=== PATIENT | female | born 1930 | race Caucasian/White ===

== ENCOUNTER 2016-12-20 14:35 | Emergency (ER) | payer MEDICARE ==
[~2016-12-20] VITALS: Ht 170.2 cm; Wt 58.4 kg
[~2016-12-20 14:35] MED LIST: CALC-141 PO; CHOL20002 PO; ELEQUIST; HYDR-3138 PO; MULT-208 PO; RITUXIN; TRAM-28 PO; TRAV5DRO; [UNRECOGNIZED DRUG - OTHER] PO
[2016-12-20 16:27] VITALS: BP 124/55
== END 2016-12-20 16:29 | disposition home or self-care (01) ==
LOC: ED 16:08
DX: L03.116 Cellulitis of left lower limb (principal); Z88.0 Allergy status to penicillin; Z88.1 Allergy status to other antibiotic agents
CPT/HCPCS: 99283

== ENCOUNTER 2017-02-15 14:53 | Emergency (ER) | payer MEDICARE ==
[~2017-02-15] VITALS: Ht 170.2 cm; Wt 57.9 kg
[2017-02-15] MEDS ORDERED: KETOROLAC 30 MG/1 ML IM ONE (15:30)
[2017-02-15] MEDS ORDERED: KETOROLAC 30 MG/1 ML ONE (15:46)
[2017-02-15] MEDS ORDERED: APIX5TAB PO (15:54)
[2017-02-15] MEDS ORDERED: SODIUM CHLORIDE FLUSH 10ML SYR IVF ONE (16:30)
[2017-02-15 16:53] LABS: BLOOD UREA NITROGEN 22 mg/dL (7-18)
[2017-02-15 17:15] LABS: DIFF TOTAL CELLS COUNTED 100 CELL DIFF
[2017-02-15 17:19] LABS: VERIFY COUNTS? YES
[2017-02-15] MEDS ORDERED: OMNIPAQUE 350 MG/ML, 100ML BOTTLE ONE (17:36)
[2017-02-15 18:51] VITALS: BP 137/84
== END 2017-02-15 18:53 | disposition home or self-care (01) ==
LOC: ED 18:00
DX: M51.36 Other intervertebral disc degeneration, lumbar region (principal); M54.5 Low back pain; Z86.718 Personal history of other venous thrombosis and embolism; Z88.0 Allergy status to penicillin; Z88.1 Allergy status to other antibiotic agents; Z88.8 Allergy status to other drugs, medicaments and biological substances
CPT/HCPCS: 36415; 71275; 72110; 74174; 80048; 82040; 85025; 99285; Q9967

== ENCOUNTER 2017-12-06 15:01 | Inpatient (IN) | payer MEDICARE ==
[~2017-12-06] VITALS: Ht 170.2 cm; Wt 64.6 kg
[~2017-12-06 15:01] MED LIST changes: +APIX5TAB PO; -HYDR-3138 PO; +HYDR-3237 PO; -TRAM-28 PO; +TRAM-47 PO
[2017-12-06] MEDS ORDERED: SODIUM CHLORIDE FLUSH 10ML SYR IVF ONE (15:30)
[2017-12-06] MEDS ORDERED: SODIUM CHLORIDE 0.9% 1,000 ML IV ONE (15:52)
[2017-12-06] MEDS ORDERED: SODIUM CHLORIDE 0.9% 1,000ML IVBOLUS ONE (16:00)
[2017-12-06 16:19] LABS: BASOPHILS # (AUTO) 0.01 x10^3/uL (0-0.1); BASOPHILS % (AUTO) 0 % (0-1); EOSINOPHILS # (AUTO) 0.75 x10^3/uL (0-0.4); EOSINOPHILS % (AUTO) 13 % (1-7); LYMPHOCYTES # (AUTO) 0.59 x10^3/uL (1-3.4); LYMPHOCYTES % (AUTO) 11 % (22-44); MD NO; MEAN CORPUSCULAR HEMOGLOBIN 34.1 pg (27.0-34.8); MEAN CORPUSCULAR HGB CONC 34.1 g/dL (32.4-35.8); MEAN PLATELET VOLUME 7.5 fL (7.4-10.4); MONOCYTES # (AUTO) 0.49 x10^3/uL (0.2-0.8); MONOCYTES % (AUTO) 9 % (2-9); NEUTROPHILS # (AUTO) 3.76 x10^3/uL (1.8-6.8); NEUTROPHILS % (AUTO) 67 % (42-75); PLATELET COUNT 202 x10^3/uL (130-400); RED BLOOD COUNT 3.08 x10^6/uL (3.82-5.3); RED CELL DISTRIBUTION WIDTH 15.2 % (9.6-15.2)
[2017-12-06 16:31] LABS: ALANINE AMINOTRANSFERASE 25 U/L (12-78); ALBUMIN 3.2 g/dL (3.4-5.0); ANION GAP 5 mmol/L (5-15); CHLORIDE 109 mmol/L (98-107)
[2017-12-06 16:35] LABS: ALKALINE PHOSPHATASE 26 U/L (45-117); BILIRUBIN,TOTAL 0.7 mg/dL (0.2-1.0); CALCIUM 14.2 mg/dL (8.5-10.1); TOTAL PROTEIN 7.9 g/dL (6.4-8.2); TROPONIN I < 0.015 ng/mL (0.000-0.045)
[2017-12-06] MEDS ORDERED: PHARMACY MAY ADJ FOR RENAL FX MC PRN (17:30)
[2017-12-06] MEDS ORDERED: ONDANSETRON 2MG/ML, 2ML IVPush PRN (17:30)
[2017-12-06] MEDS ORDERED: hydrALAzine 20 MG/ML, 1ML IVPush PRN (17:30)
[2017-12-06] MEDS ORDERED: BISACODYL 10 MG SUPP PR PRN (17:30)
[2017-12-06] MEDS ORDERED: ACETAMINOPHEN 325 MG TABLET PO PRN (17:30)
[2017-12-06] MEDS ORDERED: PAMIDRONATE 90 MG in SODIUM CHLORIDE 0.9% 500 ML IV ONE (17:30)
[2017-12-06 17:36] LABS: MICROSCOPIC AUTO
[2017-12-06 17:37] LABS: CULTURE INDICATED? NO
[2017-12-06] MEDS ORDERED: HYDROcodone/APAP 5/325 TABLET PO PRN (18:00)
[2017-12-06] MEDS: SODIUM CHLORIDE 0.9% 1,000 ML IV SCH ×2 (18:31→21:09)
[2017-12-06] MEDS: CALCITONIN SALMON 200 UNITS/ML, 2ML SQ SCH (19:30)
[2017-12-06 21:00] VITALS: BP 133/74
[2017-12-06] MEDS ORDERED: APIXABAN 2.5 MG TABLET PO SCH (21:00)
[2017-12-06] MEDS: DOCUSATE 100 MG CAPSULE PO SCH (21:00)
[2017-12-06 21:30] VITALS: BP 133/74
[2017-12-07 01:11] VITALS: BP 113/67
[2017-12-07] MEDS: SODIUM CHLORIDE 0.9% 1,000 ML IV SCH ×4 (02:18→23:25)
[2017-12-07 06:06] LABS: BASOPHILS # (AUTO) 0.01 x10^3/uL (0-0.1); BASOPHILS % (AUTO) 0 % (0-1); EOSINOPHILS # (AUTO) 0.56 x10^3/uL (0-0.4); EOSINOPHILS % (AUTO) 14 % (1-7); LYMPHOCYTES # (AUTO) 0.64 x10^3/uL (1-3.4); LYMPHOCYTES % (AUTO) 16 % (22-44); MD NO; MEAN CORPUSCULAR HEMOGLOBIN 34.2 pg (27.0-34.8); MEAN CORPUSCULAR HGB CONC 34.3 g/dL (32.4-35.8); MEAN CORPUSCULAR VOLUME 99.7 fL (80-100); MEAN PLATELET VOLUME 7.5 fL (7.4-10.4); MONOCYTES # (AUTO) 0.38 x10^3/uL (0.2-0.8); MONOCYTES % (AUTO) 9 % (2-9); NEUTROPHILS # (AUTO) 2.51 x10^3/uL (1.8-6.8); NEUTROPHILS % (AUTO) 61 % (42-75); PLATELET COUNT 164 x10^3/uL (130-400); RED BLOOD COUNT 2.58 x10^6/uL (3.82-5.3); RED CELL DISTRIBUTION WIDTH 15.3 % (9.6-15.2)
[2017-12-07 06:16] LABS: ALBUMIN 2.6 g/dL (3.4-5.0); CALCIUM 11.3 mg/dL (8.5-10.1); CHLORIDE 116 mmol/L (98-107)
[2017-12-07 06:30] LABS: ALANINE AMINOTRANSFERASE 20 U/L (12-78); ALKALINE PHOSPHATASE 21 U/L (45-117); ANION GAP 7 mmol/L (5-15); BILIRUBIN,TOTAL 0.6 mg/dL (0.2-1.0); CREATININE 1.79 mg/dL (0.55-1.02); TOTAL PROTEIN 6.6 g/dL (6.4-8.2)
[2017-12-07 07:37] VITALS: BP 110/66
[2017-12-07] MEDS: POLYETHYLENE GLYCOL 17 GM PACKET PO SCH (07:53)
[2017-12-07] MEDS: ELIQUIS 2.5 MG HOMEMEDPO SCH ×2 (07:53→20:11)
[2017-12-07] MEDS: DOCUSATE 100 MG CAPSULE PO SCH ×2 (07:53→20:11)
[2017-12-07] MEDS: CALCITONIN SALMON 200 UNITS/ML, 2ML SQ SCH ×2 (07:53→20:11)
[2017-12-07 12:56] VITALS: BP 121/59
[2017-12-07 18:30] VITALS: BP 113/64
[2017-12-07] MEDS ORDERED: MAGNESIUM CITRATE 300ML ORAL SOL PO ONE (21:00)
[2017-12-08 01:36] VITALS: BP 124/68
[2017-12-08 05:46] LABS: ANION GAP 7 mmol/L (5-15); CALCIUM 10.3 mg/dL (8.5-10.1); CHLORIDE 118 mmol/L (98-107); CREATININE 1.54 mg/dL (0.55-1.02)
[2017-12-08 05:59] LABS: % IRON SATURATION 30 % (20-55); IRON LEVEL 70 mcg/dL (50-170); TOTAL IRON BINDING CAPACITY 231 mcg/dL (250-450); TRANSFERRIN 179 mg/dL (200-360)
[2017-12-08 07:00] LABS: BASOPHILS % (AUTO) 0 % (0-1); EOSINOPHILS # (AUTO) 0.41 x10^3/uL (0-0.4); EOSINOPHILS % (AUTO) 11 % (1-7); LYMPHOCYTES # (AUTO) 0.57 x10^3/uL (1-3.4); LYMPHOCYTES % (AUTO) 15 % (22-44); MD NO; MEAN CORPUSCULAR HEMOGLOBIN 34.6 pg (27.0-34.8); MEAN CORPUSCULAR HGB CONC 34.6 g/dL (32.4-35.8); MEAN PLATELET VOLUME 7.4 fL (7.4-10.4); MONOCYTES # (AUTO) 0.36 x10^3/uL (0.2-0.8); MONOCYTES % (AUTO) 9 % (2-9); NEUTROPHILS # (AUTO) 2.51 x10^3/uL (1.8-6.8); NEUTROPHILS % (AUTO) 65 % (42-75); PLATELET COUNT 154 x10^3/uL (130-400); RED CELL DISTRIBUTION WIDTH 14.9 % (9.6-15.2)
[2017-12-08 07:03] VITALS: BP 137/70
[2017-12-08] MEDS: POLYETHYLENE GLYCOL 17 GM PACKET PO SCH (09:00)
[2017-12-08] MEDS: DOCUSATE 100 MG CAPSULE PO SCH (09:00)
[2017-12-08] MEDS: ELIQUIS 2.5 MG HOMEMEDPO SCH (09:00)
[2017-12-08] MEDS: CALCITONIN SALMON 200 UNITS/ML, 2ML SQ SCH (09:51)
[2017-12-08] MEDS: SODIUM CHLORIDE 0.9% 1,000 ML IV SCH (09:51)
[2017-12-08] MEDS ORDERED: ELIQUIS HOMEMEDPO (11:20)
[2017-12-08] MEDS ORDERED: APIX5TAB PO (11:26)
== END 2017-12-08 13:00 | disposition home or self-care (01) | DRG 683 ==
LOC: ED 17:21 → EDIP 17:22 → ED 18:46 → 4WST 20:24 → DCLOUNGE 12-08 12:46
PROVIDERS: ADMIT Internal Medicine; ATTEND Internal Medicine
DX: N17.9 Acute kidney failure, unspecified (principal); C85.90 Non-Hodgkin lymphoma, unspecified, unspecified site; E44.0 Moderate protein-calorie malnutrition; I82.502 Chronic embolism and thrombosis of unspecified deep veins of left lower extremity; E83.52 Hypercalcemia; D64.9 Anemia, unspecified; K59.00 Constipation, unspecified; G89.29 Other chronic pain; I10 Essential (primary) hypertension; Z86.12 Personal history of poliomyelitis; Z79.01 Long term (current) use of anticoagulants
CPT/HCPCS: 36415; 80048; 80053; 81001; 82306; 82728; 83540; 83550; 83735; 83970; 84100; 84443; 84466; 84484; 85025; 93005; 96360; 96361; J0630; J7030

== ENCOUNTER → 2017-12-28 | Outpatient (CLI) | payer MEDICARE ==
[~2017-12-28] MED LIST changes: +ELIQUIS HOMEMEDPO
== END | disposition home or self-care (01) ==
LOC: PETCFH 13:30
PROVIDERS: ATTEND Internal Medicine Hematology & Oncology
DX: C85.95 Non-Hodgkin lymphoma, unspecified, lymph nodes of inguinal region and lower limb (principal); C85.10 Unspecified B-cell lymphoma, unspecified site
CPT/HCPCS: 78815; A9552

== ENCOUNTER 2019-02-08 09:27 | Emergency (ER) | payer MEDICARE ==
[~2019-02-08] VITALS: Ht 170.2 cm; Wt 57.1 kg
[2019-02-08 09:39] VITALS: BP 131/78
== END 2019-02-08 11:34 | disposition home or self-care (01) ==
LOC: ED 09:57
DX: R04.0 Epistaxis (principal); Z86.718 Personal history of other venous thrombosis and embolism
CPT/HCPCS: 99282

== ENCOUNTER 2019-09-25 16:28 | Inpatient (IN) | payer MEDICARE ==
[~2019-09-25] VITALS: Ht 170.2 cm; Wt 56.0 kg
[~2019-09-25 16:28] MED LIST changes: +APIX2.5T PO; +BACI1POW2 TP; -CHOL20002 PO; +CHOL200052 PO; +PANT20TA3 PO; +PRED10TA PO
[2019-09-25] MEDS ORDERED: SODIUM CHLORIDE 0.9% 1,000 ML IV ONE (16:51)
--- NOTE | 2019-09-25 17:00 | NUR ---
PT SENT HERE BY PCP, PT CALLED AND TOLD CA+ 12.5. PT WITH GEN WEAKNESS AND DRY MOUTH X1 MONTH. PIV INITIATED, PT MEDICATED PER SEP. PT TO CARD MONITOR, BP, CONT PULSE OX
[2019-09-25 17:22] LABS: BASOPHILS % (AUTO) 0 % (0-1); EOSINOPHILS # (AUTO) 0.58 x10^3/uL (0-0.4); EOSINOPHILS % (AUTO) 13 % (1-7); LYMPHOCYTES # (AUTO) 0.64 x10^3/uL (1-3.4); LYMPHOCYTES % (AUTO) 15 % (22-44); MD NO; MEAN CORPUSCULAR HEMOGLOBIN 31.8 pg (27.0-34.8); MEAN CORPUSCULAR HGB CONC 33.4 g/dL (32.4-35.8); MEAN CORPUSCULAR VOLUME 95.1 fL (80-100); MEAN PLATELET VOLUME 8.3 fL (7.4-10.4); MONOCYTES # (AUTO) 0.35 x10^3/uL (0.2-0.8); MONOCYTES % (AUTO) 8 % (2-9); NEUTROPHILS # (AUTO) 2.77 x10^3/uL (1.8-6.8); NEUTROPHILS % (AUTO) 64 % (42-75); PLATELET COUNT 136 x10^3/uL (130-400); RED BLOOD COUNT 3.53 x10^6/uL (3.82-5.3); RED CELL DISTRIBUTION WIDTH 13.5 % (9.6-15.2)
[2019-09-25 17:31] LABS: ALBUMIN 2.8 g/dL (3.4-5.0); ANION GAP 6 mmol/L (5-15); CALCIUM 12.3 mg/dL (8.5-10.1); CHLORIDE 108 mmol/L (98-107)
[2019-09-25 17:33] LABS: ALANINE AMINOTRANSFERASE 14 U/L (12-78); ALKALINE PHOSPHATASE 27 U/L (45-117); BILIRUBIN,TOTAL 0.4 mg/dL (0.2-1.0); CREATININE 1.74 mg/dL (0.55-1.02); TOTAL PROTEIN 7.5 g/dL (6.4-8.2)
[2019-09-25] MEDS ORDERED: SODIUM CHLORIDE FLUSH 10ML SYR IVF ONE (18:00)
--- NOTE | 2019-09-25 18:18 | NUR ---
PT RESTING COMFORTABLY ON [place] AT THIS TIME, VSS, NAD NOTED. FLUIDS INFUSING
[2019-09-25] MEDS ORDERED: ACETAMINOPHEN 325 MG TABLET PO PRN (19:00)
--- NOTE | 2019-09-25 19:13 | NUR ---
Report received from LUCIA Ramirez. This RN to assume care. Patient resting in [facility] with no complaints.
[2019-09-25 19:50] LABS: FREE T4 (FREE THYROXINE) 1.29 ng/dL (0.76-1.46)
--- NOTE | 2019-09-25 20:13 | NUR ---
Report given to LUCIA Polo. Patient to be transferred to room 346.
[2019-09-25 21:44] VITALS: BP 150/79
[2019-09-26 00:51] VITALS: BP 109/62
[2019-09-26 05:48] LABS: CALCIUM 11.5 mg/dL (8.5-10.1); CHLORIDE 113 mmol/L (98-107)
[2019-09-26 05:52] LABS: ANION GAP 6 mmol/L (5-15); CREATININE 1.65 mg/dL (0.55-1.02)
[2019-09-26 06:12] LABS: MEAN CORPUSCULAR HEMOGLOBIN 32.6 pg (27.0-34.8); MEAN CORPUSCULAR HGB CONC 34.2 g/dL (32.4-35.8); MEAN CORPUSCULAR VOLUME 95.2 fL (80-100); MEAN PLATELET VOLUME 8.6 fL (7.4-10.4); PLATELET COUNT 97 x10^3/uL (130-400); RED BLOOD COUNT 3.29 x10^6/uL (3.82-5.3); RED CELL DISTRIBUTION WIDTH 13.7 % (9.6-15.2)
[2019-09-26 06:13] LABS: BASOPHILS # (AUTO) 0.01 x10^3/uL (0-0.1); BASOPHILS % (AUTO) 0 % (0-1); EOSINOPHILS # (AUTO) 0.57 x10^3/uL (0-0.4); EOSINOPHILS % (AUTO) 15 % (1-7); LYMPHOCYTES # (AUTO) 0.63 x10^3/uL (1-3.4); LYMPHOCYTES % (AUTO) 16 % (22-44); MD SCAN; MONOCYTES # (AUTO) 0.37 x10^3/uL (0.2-0.8); MONOCYTES % (AUTO) 10 % (2-9); NEUTROPHILS # (AUTO) 2.34 x10^3/uL (1.8-6.8); NEUTROPHILS % (AUTO) 60 % (42-75)
[2019-09-26 08:00] VITALS: BP 131/70
[2019-09-26] MEDS ORDERED: FUROSEMIDE 20 MG/2 ML IV SCH (09:00)
[2019-09-26] MEDS: HEPARIN 5,000 UNITS/ML, 1ML SQ SCH ×2 (09:01→20:20)
[2019-09-26] MEDS: POTASSIUM CHLORIDE 10 MEQ in D5%-0.45% NACL 1,000 ML IV SCH ×3 (10:14→20:22)
[2019-09-26 13:30] VITALS: BP 121/68
[2019-09-26 19:57] VITALS: BP 118/64
[2019-09-27] MEDS: POTASSIUM CHLORIDE 10 MEQ in D5%-0.45% NACL 1,000 ML IV SCH ×3 (01:06→14:00)
[2019-09-27 01:09] VITALS: BP 133/69
[2019-09-27 04:30] LABS: MICROSCOPIC NOT IND
[2019-09-27 04:33] LABS: CULTURE INDICATED? NO
[2019-09-27] MEDS: HEPARIN 5,000 UNITS/ML, 1ML SQ SCH ×3 (05:00→21:00)
[2019-09-27 05:31] LABS: ALBUMIN 2.2 g/dL (3.4-5.0); ANION GAP 5 mmol/L (5-15); CALCIUM 10.1 mg/dL (8.5-10.1); CHLORIDE 110 mmol/L (98-107)
[2019-09-27 05:35] LABS: ALANINE AMINOTRANSFERASE 13 U/L (12-78); ALKALINE PHOSPHATASE 18 U/L (45-117); BILIRUBIN,TOTAL 0.7 mg/dL (0.2-1.0); CREATININE 1.41 mg/dL (0.55-1.02); TOTAL PROTEIN 5.9 g/dL (6.4-8.2)
[2019-09-27 07:39] VITALS: BP 126/66
[2019-09-27] MEDS ORDERED: POTASSIUM CHLORIDE 20 MEQ TAB.ER.PRT PO ONE (08:00)
[2019-09-27 14:09] VITALS: BP 112/67
[2019-09-27 19:58] VITALS: BP 115/67
[2019-09-28 01:06] VITALS: BP 121/62
[2019-09-28] MEDS: HEPARIN 5,000 UNITS/ML, 1ML SQ SCH (05:00)
[2019-09-28 06:54] LABS: ALBUMIN 2.2 g/dL (3.4-5.0); ANION GAP 5 mmol/L (5-15); CALCIUM 10.2 mg/dL (8.5-10.1); CHLORIDE 113 mmol/L (98-107)
[2019-09-28 06:57] LABS: ALANINE AMINOTRANSFERASE 13 U/L (12-78); ALKALINE PHOSPHATASE 21 U/L (45-117); BILIRUBIN,TOTAL 0.4 mg/dL (0.2-1.0); CREATININE 1.43 mg/dL (0.55-1.02); TOTAL PROTEIN 6.1 g/dL (6.4-8.2)
[2019-09-28] MEDS ORDERED: LACTATED RINGERS 1,000 ML IV SCH (07:30)
[2019-09-28 08:00] VITALS: BP 120/60
[2019-09-28] MEDS ORDERED: POTASSIUM CHLORIDE 10 MEQ in D5%-0.45% NACL 1,000 ML IV SCH (08:00)
[2019-09-28] MEDS: LACTATED RINGERS 1,000 ML IV SCH ×3 (08:11→22:44)
[2019-09-28 14:00] VITALS: BP 125/65
[2019-09-29 02:04] VITALS: BP 126/72
[2019-09-29] MEDS: LACTATED RINGERS 1,000 ML IV SCH ×3 (02:23→16:02)
[2019-09-29 04:58] LABS: ALBUMIN 2.4 g/dL (3.4-5.0); ANION GAP 6 mmol/L (5-15); CALCIUM 10.6 mg/dL (8.5-10.1); CHLORIDE 111 mmol/L (98-107)
[2019-09-29 05:02] LABS: % IRON SATURATION 25 % (20-55); ALANINE AMINOTRANSFERASE 13 U/L (12-78); ALKALINE PHOSPHATASE 20 U/L (45-117); BILIRUBIN,TOTAL 0.7 mg/dL (0.2-1.0); CREATININE 1.24 mg/dL (0.55-1.02); IRON LEVEL 62 mcg/dL (50-170); TOTAL IRON BINDING CAPACITY 247 mcg/dL (250-450); TOTAL PROTEIN 6.4 g/dL (6.4-8.2)
[2019-09-29 07:58] VITALS: BP 128/65
[2019-09-29] MEDS ORDERED: FEBUXOSTAT 40 MG TABLET PO SCH (09:00)
[2019-09-29] MEDS: CALCITONIN SALMON 200 UNITS/ML, 2ML SQ SCH ×2 (10:21→21:23)
[2019-09-29 14:46] LABS: MICROSCOPIC NOT IND
[2019-09-29 14:52] VITALS: BP 122/68
[2019-09-29 14:52] LABS: CULTURE INDICATED? NO
[2019-09-29] MEDS ORDERED: GOLYTELY 4,000ML ORAL.SOL PO ONE (18:00)
[2019-09-29 18:36] VITALS: BP 145/83
[2019-09-30 01:38] VITALS: BP 138/74
[2019-09-30] MEDS: LACTATED RINGERS 1,000 ML IV SCH (01:38)
[2019-09-30 05:52] LABS: ALBUMIN 2.4 g/dL (3.4-5.0); ANION GAP 6 mmol/L (5-15); CHLORIDE 113 mmol/L (98-107)
[2019-09-30 05:57] LABS: ALANINE AMINOTRANSFERASE 13 U/L (12-78); ALKALINE PHOSPHATASE 22 U/L (45-117); BILIRUBIN,TOTAL 0.7 mg/dL (0.2-1.0); CREATININE 1.14 mg/dL (0.55-1.02); TOTAL PROTEIN 6.4 g/dL (6.4-8.2)
[2019-09-30 07:33] VITALS: BP 127/80
[2019-09-30] MEDS ORDERED: ONDANSETRON 2MG/ML, 2ML ONE (08:35)
[2019-09-30] MEDS ORDERED: PROPOFOL 10 MG/ML, 20ML ONE (08:35)
[2019-09-30] MEDS: FERROUS SULFATE 325 MG TABLET PO SCH (12:49)
[2019-09-30] MEDS: CALCITONIN SALMON 200 UNITS/ML, 2ML SQ SCH (12:50)
[2019-09-30 14:14] VITALS: BP 132/81
[2019-09-30 19:15] VITALS: BP 113/64
[2019-10-01 01:38] VITALS: BP 108/61
[2019-10-01 04:39] LABS: ALBUMIN 2.4 g/dL (3.4-5.0); ANION GAP 5 mmol/L (5-15); CALCIUM 8.6 mg/dL (8.5-10.1); CHLORIDE 114 mmol/L (98-107)
[2019-10-01 04:40] LABS: BASOPHILS # (AUTO) 0.01 x10^3/uL (0-0.1); BASOPHILS % (AUTO) 0 % (0-1); EOSINOPHILS # (AUTO) 0.55 x10^3/uL (0-0.4); EOSINOPHILS % (AUTO) 15 % (1-7); LYMPHOCYTES # (AUTO) 0.65 x10^3/uL (1-3.4); LYMPHOCYTES % (AUTO) 18 % (22-44); MD NO; MEAN CORPUSCULAR HEMOGLOBIN 32.1 pg (27.0-34.8); MEAN CORPUSCULAR HGB CONC 33.8 g/dL (32.4-35.8); MEAN CORPUSCULAR VOLUME 94.8 fL (80-100); MEAN PLATELET VOLUME 8.6 fL (7.4-10.4); MONOCYTES # (AUTO) 0.39 x10^3/uL (0.2-0.8); MONOCYTES % (AUTO) 11 % (2-9); NEUTROPHILS # (AUTO) 2.09 x10^3/uL (1.8-6.8); NEUTROPHILS % (AUTO) 57 % (42-75); PLATELET COUNT 120 x10^3/uL (130-400); RED BLOOD COUNT 3.05 x10^6/uL (3.82-5.3); RED CELL DISTRIBUTION WIDTH 13.9 % (9.6-15.2)
[2019-10-01 07:50] VITALS: BP 110/62
[2019-10-01] MEDS: FERROUS SULFATE 325 MG TABLET PO SCH (07:59)
[2019-10-01] MEDS ORDERED: FERR-51 PO (09:03)
[2019-10-01] MEDS ORDERED: POLYETHYLENE GLYCOL 17 GM PACKET PO SCH (10:46)
== END 2019-10-01 11:50 | disposition home or self-care (01) | DRG 682 ==
LOC: ED 18:11 → EDIP 18:12 → ED 18:33 → 3N 20:16 → 4NW 09-29 18:36
PROVIDERS: ADMIT Family Medicine; ATTEND Family Medicine
PROC: 0DBH8ZX Excision of Cecum, Via Natural or Artificial Opening Endoscopic, Diagnostic (ICD-10-PCS; principal; 2019-09-25)
DX: N17.0 Acute kidney failure with tubular necrosis (principal); E43 Unspecified severe protein-calorie malnutrition; C85.90 Non-Hodgkin lymphoma, unspecified, unspecified site; Z68.1 Body mass index [BMI] 19.9 or less, adult; D69.3 Immune thrombocytopenic purpura; E83.52 Hypercalcemia; D69.6 Thrombocytopenia, unspecified; K63.5 Polyp of colon; E87.6 Hypokalemia; E83.39 Other disorders of phosphorus metabolism; G89.29 Other chronic pain; M54.9 Dorsalgia, unspecified; K59.00 Constipation, unspecified; N18.3 Chronic kidney disease, stage 3 (moderate); D63.8 Anemia in other chronic diseases classified elsewhere; K64.8 Other hemorrhoids; E79.0 Hyperuricemia without signs of inflammatory arthritis and tophaceous disease; Z86.718 Personal history of other venous thrombosis and embolism; Z79.01 Long term (current) use of anticoagulants; Z82.49 Family history of ischemic heart disease and other diseases of the circulatory system; Z79.899 Other long term (current) drug therapy; Z88.2 Allergy status to sulfonamides; Z88.8 Allergy status to other drugs, medicaments and biological substances; Z98.49 Cataract extraction status, unspecified eye
CPT/HCPCS: 36415; 71250; 74176; 76770; 80048; 80053; 80069; 81003; 82306; 82330; 82397; 82550; 82728; 83540; 83550; 83735; 83970; 84100; 84439; 84443; 84550; 85025; 88305; 93005; G0378; J2405; J2704; J3480; J0630; J1940; J7030; J7120

== ENCOUNTER 2019-12-29 19:21 | Observation (INO) | payer MEDICARE ==
[~2019-12-29] VITALS: Ht 170.2 cm; Wt 56.4 kg
[~2019-12-29 19:21] MED LIST changes: +FERR-51 PO
--- NOTE | 2019-12-29 19:33 | NUR ---
HAJA HOUSTON IN ROOM FOR EVAL. PT C/O DIZZINESS WHEN CHANGING POSITION. EKG DONE. PIV BY EMS. FALL PRECS AND CALL MATIAS.
[2019-12-29] MEDS ORDERED: MECLIZINE CHEWABLE 25 MG TAB PO ONE (20:00)
[2019-12-29] MEDS ORDERED: MECLIZINE CHEWABLE 25 MG TAB ONE (20:02)
--- NOTE | 2019-12-29 20:14 | NUR ---
TO AND FROM RAD. MECLIZINE PER SEP. NAD.
[2019-12-29 20:41] LABS: MEAN CORPUSCULAR HEMOGLOBIN 35.1 pg (27.0-34.8); MEAN CORPUSCULAR HGB CONC 34.2 g/dL (32.4-35.8); MEAN CORPUSCULAR VOLUME 102.6 fL (80-100); MEAN PLATELET VOLUME 7.7 fL (7.4-10.4); PLATELET COUNT 169 x10^3/uL (130-400); RED BLOOD COUNT 2.63 x10^6/uL (3.82-5.3); RED CELL DISTRIBUTION WIDTH 20.3 % (9.6-15.2)
[2019-12-29 20:45] LABS: ALANINE AMINOTRANSFERASE 15 U/L (12-78); ALBUMIN 2.6 g/dL (3.4-5.0); ANION GAP 5 mmol/L (5-15); CALCIUM 9.3 mg/dL (8.5-10.1); CHLORIDE 105 mmol/L (98-107); CREATININE 0.96 mg/dL (0.55-1.02)
[2019-12-29 20:49] LABS: ALKALINE PHOSPHATASE 28 U/L (45-117); BILIRUBIN,TOTAL 0.9 mg/dL (0.2-1.0); TOTAL PROTEIN 7.7 g/dL (6.4-8.2); TROPONIN I < 0.015 ng/mL (0.000-0.045)
[2019-12-29 20:55] LABS: MD YES
[2019-12-29 20:59] LABS: ANISOCYTOSIS 2+; EOS#(MANUAL) 0.09 x10^3/uL (0.0-0.4); EOS% (MANUAL) 3 % (1-7); LYMPH#(MANUAL) 0.39 x10^3/uL (1-3.4); LYMPHS% (MANUAL) 13 % (22-44); MONOS#(MANUAL) 0.21 x10^3/uL (0.3-2.7); MONOS% (MANUAL) 7 % (2-9); SEG#(MANUAL) 2.31 x10^3/uL (1.8-6.8); SEGS% (MANUAL) 77 % (42-75)
[2019-12-29 21:00] LABS: MICROCYTOSIS 1+
--- NOTE | 2019-12-29 21:00 | NUR ---
REPORT TO ONDINA MYERS.
[2019-12-29 21:02] LABS: <PLATELET ESTIMATE> ADEQUATE; <PLT MORPHOLOGY> NORMAL PLT MORPH; OVALOCYTES 1+
--- NOTE | 2019-12-29 22:00 | NUR ---
PATIENT RESTING IN BED, NO NOTED NEEDS AT THIS TIME. WILL CONTINUE TO MONITOR.
[2019-12-29] MEDS ORDERED: SODIUM CHLORIDE FLUSH 10ML SYR IVF PRN (22:30)
[2019-12-29] MEDS ORDERED: ERGO500017 PO (23:03)
[2019-12-29] MEDS ORDERED: MULT-257 PO (23:03)
--- NOTE | 2019-12-29 23:05 | NUR ---
PATIENT UPDATED ON PLAN OF CARE. VITAL SIGNS STABLE. NO NOTED FURTHER NEEDS AT THIS TIME. PATIENT'S VITAL SIGNS ARE STABLE. WILL CONTINUE TO MONITOR.
[2019-12-29] MEDS ORDERED: ONDANSETRON ODT 4 MG PO PRN (23:30)
[2019-12-29] MEDS ORDERED: ACETAMINOPHEN 325 MG TABLET PO PRN (23:30)
[2019-12-29] MEDS ORDERED: MECLIZINE 25 MG TABLET PO PRN (23:30)
[2019-12-29] MEDS ORDERED: hydrALAzine 20 MG/ML, 1ML IVPush PRN (23:30)
[2019-12-29] MEDS ORDERED: ONDANSETRON 2MG/ML, 2ML IVPush PRN (23:30)
[2019-12-29] MEDS ORDERED: DOCUSATE 100 MG CAPSULE PO PRN (23:30)
[2019-12-29] MEDS ORDERED: BISACODYL 10 MG SUPP PR PRN (23:30)
[2019-12-29] MEDS ORDERED: POLYETHYLENE GLYCOL 17 GM PACKET PO PRN (23:30)
[2019-12-29] MEDS ORDERED: OXYcodone IR 5MG TABLET PO PRN (23:30)
[2019-12-29] MEDS ORDERED: PROMETHAZINE 25 MG/ML, 1ML IM PRN (23:30)
[2019-12-29 23:53] LABS: FREE T4 (FREE THYROXINE) 1.59 ng/dL (0.76-1.46)
[2019-12-30 01:06] VITALS: BP 108/68
[2019-12-30] MEDS: SODIUM CHLORIDE 0.9% 1,000 ML IV SCH ×2 (01:30→12:46)
[2019-12-30 02:50] VITALS: BP 110/67
[2019-12-30 05:04] LABS: MICROSCOPIC AUTO
[2019-12-30 07:46] LABS: MEAN CORPUSCULAR HEMOGLOBIN 35.1 pg (27.0-34.8); MEAN CORPUSCULAR HGB CONC 34.4 g/dL (32.4-35.8); MEAN PLATELET VOLUME 6.9 fL (7.4-10.4); PLATELET COUNT 162 x10^3/uL (130-400); RED BLOOD COUNT 2.44 x10^6/uL (3.82-5.3); RED CELL DISTRIBUTION WIDTH 20.7 % (9.6-15.2)
[2019-12-30 07:55] VITALS: BP 101/60
[2019-12-30 07:58] LABS: ALANINE AMINOTRANSFERASE 14 U/L (12-78); ALBUMIN 2.3 g/dL (3.4-5.0); ANION GAP 4 mmol/L (5-15); CALCIUM 8.8 mg/dL (8.5-10.1); CHLORIDE 108 mmol/L (98-107)
[2019-12-30 08:01] LABS: ALKALINE PHOSPHATASE 25 U/L (45-117); BILIRUBIN,TOTAL 0.7 mg/dL (0.2-1.0); CHOL/HDL RATIO 4.2; CHOLESTEROL, TOTAL 108 mg/dL (140-239); CREATININE 0.96 mg/dL (0.55-1.02); HDL CHOL % 24 % (28-40); HDL CHOLESTEROL (DIRECT) 26 mg/dL (40-60); LDL CHOLESTEROL,CALCULATED 65 mg/dL (54-169); LDL/HDL RATIO 2.5 (0.5-3.0); TOTAL PROTEIN 6.9 g/dL (6.4-8.2); TRIGLYCERIDES 83 mg/dL (50-200); VLDL CHOLESTEROL 17 mg/dL (0-25)
[2019-12-30 08:15] LABS: BASOPHILS # (AUTO) 0.01 x10^3/uL (0-0.1); BASOPHILS % (AUTO) 0 % (0-1); EOSINOPHILS # (AUTO) 0.38 x10^3/uL (0-0.4); EOSINOPHILS % (AUTO) 15 % (1-7); LYMPHOCYTES # (AUTO) 0.36 x10^3/uL (1-3.4); LYMPHOCYTES % (AUTO) 14 % (22-44); MD SCAN; MONOCYTES % (AUTO) 8 % (2-9); NEUTROPHILS # (AUTO) 1.56 x10^3/uL (1.8-6.8); NEUTROPHILS % (AUTO) 62 % (42-75)
[2019-12-30 14:35] VITALS: BP 95/60
[2019-12-30 19:30] VITALS: BP 99/61
[2019-12-30] MEDS ORDERED: MULTIVITAMIN 1 TABLET PO ONE (23:30)
[2019-12-30] MEDS ORDERED: ERGOCALCIFEROL 50,000 UNIT CAPSULE PO ONE (23:30)
[2019-12-31 00:39] VITALS: BP 99/59
[2019-12-31 05:16] LABS: MEAN CORPUSCULAR HEMOGLOBIN 35.3 pg (27.0-34.8); MEAN CORPUSCULAR HGB CONC 34.5 g/dL (32.4-35.8); MEAN CORPUSCULAR VOLUME 102.1 fL (80-100); MEAN PLATELET VOLUME 7.8 fL (7.4-10.4); PLATELET COUNT 161 x10^3/uL (130-400); RED BLOOD COUNT 2.39 x10^6/uL (3.82-5.3); RED CELL DISTRIBUTION WIDTH 20.5 % (9.6-15.2)
[2019-12-31 05:28] LABS: ANION GAP 4 mmol/L (5-15); CALCIUM 8.7 mg/dL (8.5-10.1); CHLORIDE 110 mmol/L (98-107)
[2019-12-31 05:46] LABS: BASOPHILS # (AUTO) 0.01 x10^3/uL (0-0.1); BASOPHILS % (AUTO) 0 % (0-1); EOSINOPHILS % (AUTO) 11 % (1-7); LYMPHOCYTES # (AUTO) 0.57 x10^3/uL (1-3.4); LYMPHOCYTES % (AUTO) 20 % (22-44); MD SCAN; MONOCYTES # (AUTO) 0.28 x10^3/uL (0.2-0.8); MONOCYTES % (AUTO) 10 % (2-9); NEUTROPHILS % (AUTO) 59 % (42-75)
[2019-12-31 08:05] VITALS: BP 115/66
[2019-12-31] MEDS ORDERED: FERROUS SULFATE 325 MG TABLET PO SCH (09:00)
[2019-12-31] MEDS ORDERED: MECL-101 PO (09:30)
[2019-12-31] MEDS ORDERED: CEFD300C37 PO (09:30)
[2019-12-31 13:03] VITALS: BP 130/73
== END 2019-12-31 14:39 | disposition home or self-care (01) ==
LOC: ED 19:39 → INTOOBSV 22:38 → EDIP 22:38 → 3N 12-30 00:30 → DCLOUNGE 12-31 14:14
PROVIDERS: ADMIT Internal Medicine; ATTEND Hospitalist
DX: R42 Dizziness and giddiness (principal); R53.1 Weakness; M79.89 Other specified soft tissue disorders; D69.6 Thrombocytopenia, unspecified; D68.59 Other primary thrombophilia; N18.3 Chronic kidney disease, stage 3 (moderate); I73.9 Peripheral vascular disease, unspecified; Z85.72 Personal history of non-Hodgkin lymphomas; Z86.2 Personal history of diseases of the blood and blood-forming organs and certain disorders involving the immune mechanism; Z86.718 Personal history of other venous thrombosis and embolism; Z86.010 Personal history of colon polyps; Z53.20 Procedure and treatment not carried out because of patient's decision for unspecified reasons; Z79.899 Other long term (current) drug therapy
CPT/HCPCS: 36415; 70450; 70551; 71045; 80048; 80053; 80061; 81001; 83036; 83735; 84439; 84443; 84484; 85025; 87077; 87086; 87186; 93005; 93971; 96360; 96361; 97161; 97165; 99285; G0378; J7030

== ENCOUNTER → 2020-01-08 | Outpatient (CLI) | payer MEDICARE ==
[~2020-01-08] MED LIST changes: +CEFD300C37 PO; +ERGO500017 PO; +MECL-101 PO; +MULT-257 PO
== END | disposition home or self-care (01) ==
LOC: RAD 13:19
PROVIDERS: ATTEND Nurse Practitioner
DX: I82.532 Chronic embolism and thrombosis of left popliteal vein (principal); I82.4Z2 Acute embolism and thrombosis of unspecified deep veins of left distal lower extremity; I82.442 Acute embolism and thrombosis of left tibial vein

== ENCOUNTER 2020-04-03 21:38 | Inpatient (IN) | payer MEDICARE ==
[~2020-04-03] VITALS: Ht 170.2 cm; Wt 58.6 kg
[~2020-04-03 21:38] MED LIST changes: -PANT20TA3 PO; +PANT20TA4 PO
[2020-04-03] MEDS ORDERED: SODIUM CHLORIDE 0.9% 1,000 ML IV ONE (21:47)
[2020-04-03] MEDS ORDERED: PLEASE ENTER HEIGHT AND WEIGHT MC SCH (22:00)
[2020-04-03 22:05] LABS: MEAN CORPUSCULAR HEMOGLOBIN 34.8 pg (27.0-34.8); MEAN CORPUSCULAR HGB CONC 32.9 g/dL (32.4-35.8); MEAN PLATELET VOLUME 7.5 fL (7.4-10.4); PLATELET COUNT 142 x10^3/uL (130-400); RED BLOOD COUNT 2.94 x10^6/uL (3.82-5.3); RED CELL DISTRIBUTION WIDTH 15.8 % (9.6-15.2)
[2020-04-03 22:15] LABS: ALANINE AMINOTRANSFERASE 18 U/L (12-78); ALBUMIN 2.4 g/dL (3.4-5.0); ANION GAP 7 mmol/L (5-15); CALCIUM 8.9 mg/dL (8.5-10.1); CHLORIDE 110 mmol/L (98-107); CREATININE 0.84 mg/dL (0.55-1.02)
[2020-04-03 22:20] LABS: ALKALINE PHOSPHATASE 24 U/L (45-117); BILIRUBIN,TOTAL 0.8 mg/dL (0.2-1.0); TOTAL PROTEIN 7.1 g/dL (6.4-8.2); TROPONIN I < 0.015 ng/mL (0.000-0.045)
[2020-04-03 22:41] LABS: BASOPHILS % (AUTO) 0 % (0-1); EOSINOPHILS % (AUTO) 7 % (1-7); LYMPHOCYTES % (AUTO) 11 % (22-44); MD SCAN; MONOCYTES # (AUTO) 0.17 x10^3/uL (0.2-0.8); MONOCYTES % (AUTO) 6 % (2-9); NEUTROPHILS # (AUTO) 2.06 x10^3/uL (1.8-6.8); NEUTROPHILS % (AUTO) 75 % (42-75)
--- NOTE | 2020-04-03 22:46 | NUR ---
PT WITH 2 PERSON ASSIST TO BATHROOM. PT UNSTEADY ON FEET AND IS A FALL RISK
[2020-04-03 23:04] LABS: MICROSCOPIC INDICATED
[2020-04-03] MEDS ORDERED: CEFTRIAXONE PMX 1GM/50ML 50 ML IV ONE (23:30)
[2020-04-04] MEDS ORDERED: CEFTRIAXONE PMX 1GM/50ML 50 ML ONE (00:06)
--- NOTE | 2020-04-04 01:02 | NUR ---
PT TRANSPORTED TO FLOOR VIA TECH AND REPORT GIVEN
--- NOTE | 2020-04-04 01:02 | NUR ---
PT DAUGHTERS P# MANINDER @ [phone]
[2020-04-04 01:42] VITALS: BP 124/74
[2020-04-04] MEDS ORDERED: ONDANSETRON 2MG/ML, 2ML IVPush PRN (03:30)
[2020-04-04] MEDS ORDERED: ACETAMINOPHEN 325 MG TABLET PO PRN ×2 (03:30→08:00)
[2020-04-04] MEDS ORDERED: MECLIZINE 25 MG TABLET PO PRN (03:30)
[2020-04-04] MEDS ORDERED: MULTIVITAMIN 1 TABLET PO SCH (03:30)
[2020-04-04] MEDS ORDERED: BISACODYL 10 MG SUPP PR PRN (03:30)
[2020-04-04 04:51] LABS: FREE T4 (FREE THYROXINE) 1.53 ng/dL (0.76-1.46)
[2020-04-04 06:58] VITALS: BP 111/63
[2020-04-04] MEDS: APIXABAN 2.5 MG TABLET PO SCH ×2 (08:33→21:10)
[2020-04-04] MEDS: FERROUS SULFATE 325 MG TABLET PO SCH (08:33)
[2020-04-04] MEDS ORDERED: SENNA/DOCUSATE TABLET PO SCH (09:00)
[2020-04-04] MEDS: SODIUM CHLORIDE 0.9% 1,000 ML IV SCH (09:12)
[2020-04-04 13:26] VITALS: BP 109/68
[2020-04-04] MEDS ORDERED: APIX2.5T PO (18:08)
[2020-04-04 18:39] VITALS: BP 123/76
[2020-04-04] MEDS: SENNA/DOCUSATE TABLET PO SCH (21:10)
[2020-04-04] MEDS: CEFTRIAXONE PMX 1GM/50ML 50 ML IV SCH (21:47)
[2020-04-05 00:13] VITALS: BP 100/65
[2020-04-05] MEDS: SODIUM CHLORIDE 0.9% 1,000 ML IV SCH (04:42)
[2020-04-05 06:36] LABS: MEAN CORPUSCULAR HEMOGLOBIN 35.5 pg (27.0-34.8); MEAN CORPUSCULAR HGB CONC 33.4 g/dL (32.4-35.8); MEAN PLATELET VOLUME 8.1 fL (7.4-10.4); PLATELET COUNT 136 x10^3/uL (130-400); RED BLOOD COUNT 2.74 x10^6/uL (3.82-5.3); RED CELL DISTRIBUTION WIDTH 16.5 % (9.6-15.2)
[2020-04-05 07:19] LABS: BASOPHILS % (AUTO) 0 % (0-1); EOSINOPHILS # (AUTO) 0.32 x10^3/uL (0-0.4); EOSINOPHILS % (AUTO) 14 % (1-7); LYMPHOCYTES # (AUTO) 0.37 x10^3/uL (1-3.4); LYMPHOCYTES % (AUTO) 15 % (22-44); MD SCAN; MONOCYTES # (AUTO) 0.18 x10^3/uL (0.2-0.8); MONOCYTES % (AUTO) 8 % (2-9); NEUTROPHILS # (AUTO) 1.52 x10^3/uL (1.8-6.8); NEUTROPHILS % (AUTO) 63 % (42-75)
[2020-04-05 07:35] VITALS: BP 99/61
[2020-04-05] MEDS: APIXABAN 2.5 MG TABLET PO SCH ×2 (07:54→21:43)
[2020-04-05] MEDS: BISACODYL 10 MG SUPP PR SCH (13:30)
[2020-04-05 15:45] VITALS: BP 103/66
[2020-04-05] MEDS: SENNA/DOCUSATE TABLET PO SCH (21:00)
[2020-04-05] MEDS: CEFTRIAXONE PMX 1GM/50ML 50 ML IV SCH (21:39)
[2020-04-05 21:40] VITALS: BP 115/66
[2020-04-06] MEDS: SODIUM CHLORIDE 0.9% 1,000 ML IV SCH ×3 (00:24→20:27)
[2020-04-06 00:34] VITALS: BP 111/67
[2020-04-06 04:11] LABS: MEAN CORPUSCULAR HGB CONC 32.7 g/dL (32.4-35.8); PLATELET COUNT 134 x10^3/uL (130-400); RED BLOOD COUNT 2.87 x10^6/uL (3.82-5.3); RED CELL DISTRIBUTION WIDTH 16.1 % (9.6-15.2)
[2020-04-06 04:25] LABS: % IRON SATURATION 23 % (20-55); IRON LEVEL 46 mcg/dL (50-170); TOTAL IRON BINDING CAPACITY 197 mcg/dL (250-450)
[2020-04-06 04:36] LABS: BASOPHILS % (AUTO) 0 % (0-1); EOSINOPHILS # (AUTO) 0.33 x10^3/uL (0-0.4); EOSINOPHILS % (AUTO) 13 % (1-7); LYMPHOCYTES # (AUTO) 0.38 x10^3/uL (1-3.4); LYMPHOCYTES % (AUTO) 15 % (22-44); MD SCAN; MONOCYTES # (AUTO) 0.17 x10^3/uL (0.2-0.8); MONOCYTES % (AUTO) 7 % (2-9); NEUTROPHILS % (AUTO) 65 % (42-75)
[2020-04-06 06:43] VITALS: BP 113/65
[2020-04-06] MEDS: APIXABAN 2.5 MG TABLET PO SCH ×2 (08:06→20:22)
[2020-04-06] MEDS: CEPHALEXIN 500 MG CAPSULE PO SCH ×2 (08:06→20:22)
[2020-04-06] MEDS: BISACODYL 10 MG SUPP PR SCH (08:06)
[2020-04-06] MEDS: FERROUS SULFATE 325 MG TABLET PO SCH (08:06)
[2020-04-06] MEDS ORDERED: CEFD300C37 PO ×2 (12:13)
[2020-04-06] MEDS ORDERED: Senna/Docusate PO (12:13)
[2020-04-06 13:07] VITALS: BP 104/64
[2020-04-06 13:29] VITALS: BP 110/62
[2020-04-06 20:15] VITALS: BP 122/76
[2020-04-06] MEDS: SENNA/DOCUSATE TABLET PO SCH (20:23)
[2020-04-07 02:16] VITALS: BP 108/62
[2020-04-07] MEDS ORDERED: BISACODYL 10 MG SUPP PR PRN (07:30)
[2020-04-07 07:47] VITALS: BP 118/70
[2020-04-07] MEDS: CEPHALEXIN 500 MG CAPSULE PO SCH ×2 (09:11→20:20)
[2020-04-07] MEDS: APIXABAN 2.5 MG TABLET PO SCH ×2 (09:11→20:20)
[2020-04-07 13:05] VITALS: BP 99/63
[2020-04-07 18:35] VITALS: BP 114/66
[2020-04-07] MEDS: SENNA/DOCUSATE TABLET PO SCH (20:03)
[2020-04-08 00:09] VITALS: BP 109/60
[2020-04-08 06:25] LABS: CREATININE 0.53 mg/dL (0.55-1.02)
[2020-04-08 07:28] VITALS: BP 113/69
[2020-04-08] MEDS: APIXABAN 2.5 MG TABLET PO SCH (08:28)
[2020-04-08] MEDS: FERROUS SULFATE 325 MG TABLET PO SCH (08:28)
[2020-04-08] MEDS: CEPHALEXIN 500 MG CAPSULE PO SCH (08:28)
[2020-04-08 13:58] VITALS: BP 102/60
== END 2020-04-08 18:30 | disposition home health service (06) | DRG 872 ==
LOC: ED 04-04 00:27 → EDIP 04-04 00:59 → 3N 04-04 01:05
PROVIDERS: ADMIT Family Medicine; ATTEND Internal Medicine
DX: A41.9 Sepsis, unspecified organism (principal); N39.0 Urinary tract infection, site not specified; E44.0 Moderate protein-calorie malnutrition; C85.90 Non-Hodgkin lymphoma, unspecified, unspecified site; B95.2 Enterococcus as the cause of diseases classified elsewhere; D64.9 Anemia, unspecified; K59.00 Constipation, unspecified; K63.9 Disease of intestine, unspecified; N18.3 Chronic kidney disease, stage 3 (moderate); Z86.12 Personal history of poliomyelitis; Z86.718 Personal history of other venous thrombosis and embolism; Z85.72 Personal history of non-Hodgkin lymphomas; W18.39XA Other fall on same level, initial encounter; Y93.89 Activity, other specified; Y92.89 Other specified places as the place of occurrence of the external cause; Y99.8 Other external cause status; Z68.20 Body mass index [BMI] 20.0-20.9, adult; Z88.2 Allergy status to sulfonamides; Z88.8 Allergy status to other drugs, medicaments and biological substances
CPT/HCPCS: 36415; 70450; 71045; 80053; 80307; 81001; 82565; 82607; 83540; 83550; 84439; 84443; 84484; 85025; 87077; 87086; 87186; 93005; 93306; 93970; 96365; G0378; J0696; J7030